=== PATIENT | female | born 1945 | race Caucasian/White ===

== ENCOUNTER 2020-11-09 15:57 | Outpatient (CLI) | payer MEDICARE, OTHER ==
[~2020-11-09] VITALS: Ht 160 cm; Wt 65.8 kg
[2020-11-09 16:33] VITALS: BP 119/67; PULSE 56; TEMP 98.5
[2020-11-09] MEDS ORDERED: VITAMIN D31000 I1 PO (17:19)
[2020-11-09] MEDS ORDERED: ONE-A-DAY ESSE1 EACH PO (17:19)
[2020-11-09] MEDS ORDERED: EPA FISH OIL1 SGL PO (17:19)
[2020-11-09] MEDS ORDERED: OSCAL 500 TAB500 MG PO (17:20)
[2020-11-09] MEDS ORDERED: CALCIUM 600MG+D1 TAB PO (17:20)
[2020-11-09] MEDS ORDERED: BIOSIL PO (17:21)
[2020-11-09] MEDS ORDERED: B-12 500 MCG PO (17:21)
[2020-11-09] MEDS ORDERED: VITAMIN E 400 U4001 PO (17:21)
[2020-11-09] MEDS ORDERED: DETOX PO (17:22)
== END 2020-11-09 17:23 | disposition home or self-care (01) ==
LOC: EUO 15:57
DX: M81.0 Age-related osteoporosis without current pathological fracture (principal)
CPT/HCPCS: J0897

== ENCOUNTER → 2020-11-12 | Outpatient (CLI) | payer MEDICARE ==
[~2020-11-12] MED LIST: B-12 500 MCG PO; BIOSIL PO; CALCIUM 600MG+D1 TAB PO; DETOX PO; EPA FISH OIL1 SGL PO; ONE-A-DAY ESSE1 EACH PO; OSCAL 500 TAB500 MG PO; VITAMIN D31000 I1 PO; VITAMIN E 400 U4001 PO
== END ==
LOC: MC.RAD 07:42
DX: N63.10 Unspecified lump in the right breast, unspecified quadrant (principal); Z98.82 Breast implant status

== ENCOUNTER 2021-07-15 14:53 | Outpatient (CLI) | payer MEDICARE ==
[2021-07-15 15:24] VITALS: BP 110/60; PULSE 60; TEMP 98.9
[2021-07-15] MEDS ORDERED: CRANBERRY250 MG PO (15:27)
[2021-07-15] MEDS ORDERED: ASPIRIN E.C. 8181 MG PO (15:28)
== END 2021-07-15 17:28 | disposition home or self-care (01) ==
LOC: EUO 14:53
DX: M81.0 Age-related osteoporosis without current pathological fracture (principal)
CPT/HCPCS: J0897

== ENCOUNTER 2021-12-06 15:15 | Observation (INO) | payer MEDICARE, OTHER ==
[~2021-12-06] VITALS: Ht 160 cm; Wt 73.0 kg
[~2021-12-06 15:15] MED LIST changes: +ASPIRIN E.C. 8181 MG PO; +CALCIUM PO; +Cranberry PO; -OSCAL 500 TAB500 MG PO
[2021-12-06 16:06] LABS: BASO # 0.1 K/mm3 (0.0-0.2); BASO % 0.7 % (0.0-2.0); EOS # 0.2 K/mm3 (0.0-0.7); EOS % 2.3 % (0.0-4.0); HEMATOCRIT 39.1 % (37.0-47.0); HEMOGLOBIN 13.3 g/dl (12.5-16.0); LYMPH # 2.8 K/mm3 (1.2-3.4); LYMPH % 32.1 % (20.0-51.0); MEAN CELL VOLUME 91 fl (80.0-100.0); MEAN CORPUSCULAR HEMOGLOBIN 31 pg (27-31); MEAN CORPUSCULAR HGB CONC 34 g/dl (33.0-37.0); MEAN PLATELET VOLUME 10.7 fl (7.4-10.4); MONO # 0.8 K/mm3 (0.1-0.6); MONO % 8.7 % (1.7-9.3); PLATELET COUNT 246 K/mm3 (130-400); RED BLOOD COUNT 4.29 M/mm3 (4.10-5.30); REDCELL DISTRIBUTION WIDTH-CV 13.2 % (11.5-14.5)
[2021-12-06 16:23] LABS: ALBUMIN 3.9 gm/dL (3.4-4.8); BILIRUBIN,TOTAL 0.4 mg/dL (0.2-1.2); CALCIUM 10.4 mg/dL (8.4-10.2); CREATININE, serum 0.74 mg/dL (0.57-1.11); POTASSIUM 3.4 mmol/L (3.5-4.5); TOTAL PROTEIN 7.2 gm/dL (6.2-8.1)
[2021-12-06 16:28] LABS: TROPONIN-I 0.03 ng/mL (0.00-0.033)
[2021-12-06] MEDS ORDERED: PROBIOTICA100 MILLIO PO (17:26)
[2021-12-06] MEDS ORDERED: RENA-VITE1 TAB PO (17:28)
[2021-12-06 20:05] VITALS: BP 141/57; PULSE 64; TEMP 98
--- NOTE | 2021-12-06 20:06 | NUR ---
Patient came to the unit, alert and oriented x 4, denies dizziness, chest pain or weakness. Telemetry in place. Assessment completed.
[2021-12-06 20:09] VITALS: BP 143/56; PULSE 59; TEMP 98
[2021-12-06] MEDS ORDERED: COD LIVER OIL1 CAP PO (20:12)
[2021-12-06 20:36] VITALS: BP 144/53; PULSE 58
[2021-12-07] VITALS (13 sets, daily range): BP systolic 115–148; BP diastolic 44–79; PULSE 51–87; TEMP 97.6–98.7
--- NOTE | 2021-12-07 05:15 | NUR ---
Pt has had a calm night. VSS. Has been NPO from midnight. Report will be given to day RN.
[2021-12-07 06:41] LABS: BASO # 0.1 K/mm3 (0.0-0.2); BASO % 0.9 % (0.0-2.0); EOS # 0.3 K/mm3 (0.0-0.7); EOS % 4.9 % (0.0-4.0); GRAN % 43.6 % (42.2-75.2); HEMATOCRIT 39.7 % (37.0-47.0); HEMOGLOBIN 12.9 g/dl (12.5-16.0); LYMPH # 2.8 K/mm3 (1.2-3.4); LYMPH % 40.9 % (20.0-51.0); MEAN CELL VOLUME 93 fl (80.0-100.0); MEAN CORPUSCULAR HEMOGLOBIN 30 pg (27-31); MEAN CORPUSCULAR HGB CONC 33 g/dl (33.0-37.0); MONO # 0.7 K/mm3 (0.1-0.6); MONO % 9.6 % (1.7-9.3); PLATELET COUNT 219 K/mm3 (130-400); RED BLOOD COUNT 4.26 M/mm3 (4.10-5.30); REDCELL DISTRIBUTION WIDTH-CV 13.3 % (11.5-14.5)
[2021-12-07 06:47] LABS: CREATININE, serum 0.73 mg/dL (0.57-1.11); POTASSIUM 3.5 mmol/L (3.5-4.5)
--- NOTE | 2021-12-07 09:49 | NUR ---
Initial visit; Patient thanked Cut Lace Machine Operator for looking in on her, offering prayer and God's blessings. Cut Lace Machine Operator will keep Bonny in her prayers.
[2021-12-07] MEDS ORDERED: SUPPORT PO (13:46)
[2021-12-07] MEDS ORDERED: LIVER SUPPORT PO ×2 (13:46→13:47)
[2021-12-07] MEDS ORDERED: REFRESH OPTIVE0.4 M1 OD (13:50)
--- NOTE | 2021-12-07 16:12 | NUR ---
Wharf Tender Helper and SW student met with patient to discuss discharge planning. Patient lives in [place] with her , Aneesh (ph#[phone]) and sees Dr. Juarez for primary care. Patient obtains medications from [facility] [address] with no difficulties. Patient does not use any DME and is independent with [facility]. Patient reports her is her DPOA-HC. Patient plans to return home at time of discharge. Discharge Plan: Home
--- NOTE | 2021-12-07 19:25 | NUR ---
Patient has had an ok day. Scheduled medications given. Shift assessment performed. Stress test and echo completed. Loop recorder placed. Patient denies any pain, discomfort, SOA, or further needs at this time. VSS. Patient A&O.
--- NOTE | 2021-12-07 21:00 | NUR ---
Patient is resting in bed, alert and oriented x 4, VSS. Denies pain, nausea or vomiting. Tlemetry in place, NSR. Assessment completed, medications provided. No other need at this time. Call light within reach.
[2021-12-08 01:26] VITALS: BP 138/65; PULSE 43; TEMP 98.4
--- NOTE | 2021-12-08 01:36 | NUR ---
Patient has been reporting HR in 38-40s. It resolves and rise to 46-50. She states have no symptoms. She has been sleeping. Reported to Dr. Gupta. Ordered to continue monitoring and report if they last more than 4 secs.
[2021-12-08 04:16] VITALS: BP 101/79; PULSE 52; TEMP 97.8
--- NOTE | 2021-12-08 06:08 | NUR ---
PT HR has been low while sleeping (40-50). It increased to 60 awake. Denies any symptoms. Report will be given to day RN.
[2021-12-08 07:30] VITALS: BP 113/65; PULSE 53; TEMP 97.6
--- NOTE | 2021-12-08 08:57 | NUR ---
Pt assessment complete. Pt is sitting up in bed upon entry, she has a student caring for her this am. She is A/O x4. Her breathing is even and unlabored on RA. No dizziness present. Pt denies SOB. No pain at this time. Awaiting doctor as patient anticipates to discharge today.
[2021-12-08 11:15] VITALS: BP 118/62; PULSE 47; TEMP 97.7
[2021-12-08] MEDS ORDERED: CEPHALEXIN500 M1 PO (11:40)
[2021-12-08] MEDS ORDERED: TENORMIN 2525 MG/TAB PO (11:43)
--- NOTE | 2021-12-08 13:58 | NUR ---
Primary nurse was assisted with [id number] patient care by [employer] student Pauline Briceño and [employer] instructor Jahaira Floyd MSN, RN.
--- NOTE | 2021-12-08 14:07 | NUR ---
Discharge paperwork and instructions reviewed with patient all questions answered at this time. IV dc'd by student nurse. Pt walked out of facility by staff member at this time.
== END 2021-12-08 14:09 | disposition home or self-care (01) ==
LOC: COL.ER 15:15 → MEDICAL 18:40
PROVIDERS: Emergency Medicine; Student in an Organized Health Care Education/Training Program; ADMIT Internal Medicine
DX: R55 Syncope and collapse (principal); I49.3 Ventricular premature depolarization; I44.7 Left bundle-branch block, unspecified; E87.6 Hypokalemia; I65.22 Occlusion and stenosis of left carotid artery; M81.0 Age-related osteoporosis without current pathological fracture; Z79.899 Other long term (current) drug therapy
CPT/HCPCS: A9500; C1764; G0378; J1650; J2785

== ENCOUNTER → 2021-12-09 | Outpatient (CLI) | payer MEDICARE, OTHER ==
[~2021-12-09] MED LIST changes: +CEPHALEXIN500 M1 PO; +COD LIVER OIL1 CAP PO; +LIVER SUPPORT PO; +PROBIOTICA100 MILLIO PO; +REFRESH OPTIVE0.4 M1 OD; +RENA-VITE1 TAB PO; +SUPPORT PO; +TENORMIN 2525 MG/TAB PO
== END ==
LOC: MC.RAD 09:30
DX: Z12.31 Encounter for screening mammogram for malignant neoplasm of breast (principal)

== ENCOUNTER 2023-01-02 10:30 | Outpatient (RCR) | payer MEDICARE, OTHER | END 2023-01-05 | disposition home or self-care (01) | LOC: WSPT | DX: M25.551 Pain in right hip (principal) ==

== ENCOUNTER → 2023-01-11 | Outpatient (CLI) | payer MEDICARE, OTHER | LOC: MC.RAD 14:29 | DX: Z12.31 Encounter for screening mammogram for malignant neoplasm of breast (principal) ==

== ENCOUNTER 2023-01-16 09:45 | Outpatient (RCR) | payer MEDICARE, OTHER | END 2023-01-16 15:00 | disposition home or self-care (01) | LOC: WSPT 09:45 | DX: M25.551 Pain in right hip (principal) ==

== ENCOUNTER 2023-01-31 08:00 | Outpatient (CLI) | payer MEDICARE, OTHER ==
[~2023-01-31] VITALS: Ht 160 cm; Wt 67.4 kg
[2023-01-31 08:16] VITALS: BP 118/52; PULSE 53; TEMP 98
[2023-01-31] MEDS ORDERED: TUMERIC (08:39)
[2023-01-31] MEDS ORDERED: GARLIC100 MG PO (08:39)
[2023-01-31] MEDS ORDERED: GLUCOSAMINE & C1 TAB PO (08:52)
[2023-01-31] MEDS ORDERED: MASON NATURAL500 MG PO (08:53)
[2023-01-31] MEDS ORDERED: BIOTIN5000 MCG PO (08:53)
[2023-01-31] MEDS ORDERED: NATURAL POTASS595 MG (08:54)
== END 2023-01-31 08:30 | disposition home or self-care (01) ==
LOC: EUO 08:00
DX: Z51.81 Encounter for therapeutic drug level monitoring (principal)
CPT/HCPCS: J0897